=== PATIENT | female | born 1995 | race Caucasian/White ===

== ENCOUNTER 2017-02-22 16:37 | Emergency (ER) | payer MEDICAID ==
[~2017-02-22] VITALS: Ht 160 cm; Wt 68.0 kg
[2017-02-22 16:51] VITALS: BP 105/62
[2017-02-22] MEDS ORDERED: DIPHENHYDRAMINE 50MG/ML VIAL IM ONE (22:30)
[2017-02-22] MEDS ORDERED: CLINDAMYCIN PHOSPHATE 300MG/2ML VIAL IM ONE (22:30)
== END 2017-02-22 23:04 | disposition home or self-care (01) ==
LOC: ER 22:20
DX: T63.301A Toxic effect of unspecified spider venom, accidental (unintentional), initial encounter (principal); S80.262A Insect bite (nonvenomous), left knee, initial encounter; S60.862A Insect bite (nonvenomous) of left wrist, initial encounter; L03.116 Cellulitis of left lower limb; W57.XXXA Bitten or stung by nonvenomous insect and other nonvenomous arthropods, initial encounter; Y93.89 Activity, other specified; Y92.89 Other specified places as the place of occurrence of the external cause; I89.1 Lymphangitis; Z88.0 Allergy status to penicillin
CPT/HCPCS: 96372; 99284; J3490